=== PATIENT | male | born 1965 | race Caucasian/White ===

== ENCOUNTER 2017-03-27 02:55 | Emergency (ER) | payer OTHER, BC ==
[2017-03-27 03:05] VITALS: BP 161/80
[2017-03-27] MEDS ORDERED: DEXAMETHASONE SOD PHOSPHATE 10 MG/ML VIAL IM ONE (03:18)
[2017-03-27] MEDS ORDERED: METHYLPREDNISOLONE ACETATE 80 MG/ML VIAL IM ONE (03:18)
[2017-03-27] MEDS ORDERED: METHYLPREDNISOLONE ACETATE 80 MG/ML VIAL ONE (03:20)
[2017-03-27] MEDS ORDERED: DEXAMETHASONE SOD PHOSPHATE 10 MG/ML VIAL ONE (03:21)
--- NOTE | 2017-03-27 03:25 | ERNOTE ---
Upper Extremity HPI - General Extremities Pain Location: shoulder: right Time Seen by Provider: 03/27/17 03:08 Source: patient Exam Limitations: no limitations - Immun/Allergies/Home Medications Immunizations: IMMUNIZATION HX Immunizations Up to Date Yes History of Influenza Vaccine No Allergies/Adverse Reactions: Allergies Allergy/AdvReac Type Severity Reaction Status Date / Time No Known Allergies Allergy Verified 03/27/17 03:04 Home Medications: HOME MEDICATIONS Cyclobenzaprine HCl [Flexeril] 10 mg PO TID PRN #14 tab 03/27/17 [Last Taken Unknown] Gabapentin 300 mg PO BID 03/27/17 [Last Taken 03/27/17 00:00] Meloxicam [Mobic] 15 mg PO DAILY 03/27/17 [Last Taken Unknown] Methylprednisolone [Medrol Dosepak] 4 mg PO DAILY #21 tab.ds.pk 03/27/17 [Last Taken Unknown] - History of Present Illness Narrative: Pt states his shoulder began hurting yesterday. from axilla to scapula Occurred: yesterday Severity: moderate, severe Method of Injury: Reports: unknown Other Injuries: Reports: none Review of Systems - Review of Systems Constitutional: Present: no symptoms reported EYE: Present: no symptoms reported ENT: Present: no symptoms reported Respiratory: Present: no symptoms reported Cardiology: Present: no symptoms reported Gastrointestinal/Abdominal: Present: no symptoms reported Genitourinary: Present: no symptoms reported Musculoskeletal: Present: See HPI, back pain. Absent: neck pain Skin: Absent: rash Neurological: Present: no symptoms reported Endocrine: Present: no symptoms reported Hematologic/Lymphatic: Present: no symptoms reported Psych: Present: no symptoms reported - Patient's Past Medical History Patient History - Medical: Arthritis Patient History - Cardiac/Respiratory: No pertinent hx Patient History - Cancer: No Hx of Cancer Patient History - Surgical Procedures: No surgical history Patient History - Other: None - Social History Living Situations: home Abuse History: No History of abuse Psych History: No pertinent hx Smoking Status: Current every day smoker Alcohol Use: none Drug Use: none - Immunizations Immunizations Up to Date: Yes History of Influenza Vaccine: No Physical Exam - Physical Exam General Appearance: Present: wd/wn, alert, no apparent distress Neck: Present: normal inspection, nontender Back Exam: Present: normal inspection, normal range of motion Extremity Exam: Present: decreased range of motion - right shoulder due to pain , other - tender posterior right shoulder Neurological Exam: Present: alert, oriented, normal mood/affect, no motor/ sensory deficits Skin Exam: Present: normal color, warm/dry Lymphatic Exam: Present: no adenopathy ED Progress - Vital Signs Vital Signs: Vital Signs 03/27/17 03:00 Temperature 36.7 C Pulse Rate 71 Respiratory 20 Rate Blood Pressure 161/80 O2 Sat by Pulse 97 Oximetry - Progress/Reassessment Chief Complaint: Shoulder Injury/Pain Departure Clinical Impression: Right shoulder strain Qualifiers: Encounter type: initial encounter Qualified Code(s): S46.911A - Strain of unspecified muscle, fascia and tendon at shoulder and upper arm level, right arm , initial encounter - Departure Disposition: Home Follow Up Needed Condition: Good Instructions: Shoulder Sprain Additional Instructions: be careful with your shoulder. Follow up with orthopedics if it continues to bother you. Referrals: Verna Howard MD [Primary Care Provider] - Prescriptions: Cyclobenzaprine HCl [Flexeril] 10 mg PO TID PRN #14 tab PRN Reason: MUSCLE SPASMS Methylprednisolone [Medrol Dosepak] 4 mg PO DAILY #21 tab.ds.pk
== END 2017-03-27 03:38 | disposition home or self-care (01) ==
LOC: ER 02:55
DX: S46.911A Strain of unspecified muscle, fascia and tendon at shoulder and upper arm level, right arm, initial encounter (principal); F17.200 Nicotine dependence, unspecified, uncomplicated

== ENCOUNTER 2017-04-10 11:06 | Emergency (ER) | payer OTHER, BC ==
[2017-04-10] MEDS ORDERED: ONDANSETRON HCL/PF 2 MG/ML VIAL ONE (11:20)
[2017-04-10] MEDS ORDERED: MORPHINE SULFATE 4 MG/ML SYRG ONE ×2 (11:20→11:54)
[2017-04-10] MEDS ORDERED: MORPHINE SULFATE 4 MG/ML SYRG IV ONE ×2 (11:27→11:53)
[2017-04-10] MEDS ORDERED: ONDANSETRON HCL/PF 2 MG/ML VIAL IV ONE (11:27)
--- NOTE | 2017-04-10 11:31 | ERNOTE ---
Upper Extremity HPI - General Extremities Pain Location: shoulder: right Time Seen by Provider: 04/10/17 11:10 Source: patient Exam Limitations: no limitations - Immun/Allergies/Home Medications Immunizations: IMMUNIZATION HX Immunizations Up to Date Yes History of Influenza Vaccine No Hx Pneumococcal Vaccination No Allergies/Adverse Reactions: Allergies Allergy/AdvReac Type Severity Reaction Status Date / Time No Known Allergies Allergy Verified 04/10/17 11:19 Home Medications: HOME MEDICATIONS Gabapentin 300 mg PO TID 03/27/17 [Last Taken 03/27/17 00:00] Meloxicam [Mobic] 15 mg PO DAILY 03/27/17 [Last Taken Unknown] Cyclobenzaprine HCl [Flexeril] 10 mg PO TID PRN 04/10/17 [Last Taken Unknown] oxyCODONE HCL/ACETAMINOPHEN [Percocet 5 MG/325 MG] 1 - 2 tab PO Q4H PRN #30 tab 04/10/17 [Last Taken Unknown] - History of Present Illness Narrative: Patient injured his shoulder in 08/2016, had surgery in november 2016 and did well till about three weeks ago when he started to have pain in his right shoulder again. 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 Yesterday he saw his orthopedic surgeon who did some test and and is working to getting shots for him preauthorized. This morning the pain got so severe that he started to feel lightheaded and nauseated. He took gabapentin 600mg, meloxicam and tylenol about an hour prior to coming here. He did not get his flexeril yet that was prescribed yesterday Review of Systems - Review of Systems Constitutional: Absent: recent illness, fever, chills Respiratory: Absent: shortness of breath Cardiology: Absent: chest pain Gastrointestinal/Abdominal: Present: nausea Genitourinary: Absent: no symptoms reported Musculoskeletal: Present: See HPI Neurological: Present: numbness - some chronic changes - Patient's Past Medical History Patient History - Medical: No pertinent hx Patient History - Cardiac/Respiratory: No pertinent hx, Sleep Apnea Patient History - Cancer: No Hx of Cancer Patient History - Surgical Procedures: No surgical history Patient History - Other: None - Social History Living Situations: home Abuse History: No History of abuse Psych History: No pertinent hx Smoking Status: Current every day smoker Have you smoked in the past 12 months: Yes Alcohol Use: rarely Drug Use: none - Immunizations Immunizations Up to Date: Yes Hx Pneumococcal Vaccination: No History of Influenza Vaccine: No Physical Exam - Physical Exam General Appearance: Present: wd/wn, alert, moderate distress, obese Neck: Present: normal inspection, nontender, supple Respiratory: Present: no respiratory distress, normal breath sounds, no accessory muscle use, lungs clear Cardiovascular/Chest: Present: regular rate, rhythm, no murmur Back Exam: Present: normal inspection, no vertebral tenderness, muscle spasm - lower right scapula Extremity Exam: Present: normal inspection, non-tender - no tenderness over shoulder joint Neurological Exam: Present: alert, oriented, normal mood/affect, no motor/ sensory deficits Skin Exam: Present: normal color, diaphoresis ED Progress - Vital Signs Patient's Vital Signs:: I have reviewed the patient's vital signs. Vital Signs: Vital Signs 04/10/17 11:09 Temperature 35.4 C L Pulse Rate 63 Respiratory 18 Rate Blood Pressure 166/93 O2 Sat by Pulse 98 Oximetry - EKG EKG: NSR, no ST T wave changes, other - no acute EKG read: Interp. by me - Progress/Reassessment Chief Complaint: Shoulder Injury/Pain Progress Note-Subjective: 04/10/17 12:19 feeling better after morphine, shrimp peeling machine tender muscle over right lower scapula Departure Clinical Impression: Shoulder pain, acute Qualifiers: Laterality: right Qualified Code(s): M25.511 - Pain in right shoulder - Departure Disposition: Home self-care Condition: Good Instructions: Shoulder Pain, [id number], Form - Excuse from Work, School, or Physical Activity Additional Instructions: make sure to take the muscle relaxants as prescribed, take the pain medications as needed call your orthopedic doctor for follow up TIM Prescriptions: oxyCODONE HCL/ACETAMINOPHEN [Percocet 5 MG/325 MG] 1 - 2 tab PO Q4H PRN #30 tab PRN Reason: Pain
[2017-04-10] MEDS ORDERED: CYCLOBENZAPRINE HCL 10 MG TABLET PO ONE (12:18)
[2017-04-10] MEDS ORDERED: oxyCODONE HCL/ACETAMINOPHEN 1 TAB TABLET PO ONE (12:18)
[2017-04-10] MEDS ORDERED: CYCLOBENZAPRINE HCL 10 MG TABLET ONE (12:24)
[2017-04-10] MEDS ORDERED: oxyCODONE HCL/ACETAMINOPHEN 1 TAB TABLET ONE (12:24)
[2017-04-10 12:27] VITALS: BP 156/80
== END 2017-04-10 12:40 | disposition home or self-care (01) ==
LOC: ER 11:06
DX: M25.511 Pain in right shoulder (principal); Z72.0 Tobacco use
CPT/HCPCS: 93005; 96374; 96375; 99284; J2405